=== PATIENT | female | born 1950 | race Caucasian/White ===

== ENCOUNTER 2017-05-12 06:23 | Day surgery (SDC) | payer MEDICARE, BC ==
[~2017-05-12] VITALS: Ht 165.1 cm; Wt 65.5 kg
[~2017-05-12 06:23] MED LIST: BUME2TAB PO; CALC-179 PO; COQ150CA PO; DIOV160T6 PO; FISH1000 PO; LIPI20TA PO; MYCO500 PO; PRED10 PO; PREV30CA36 PO; TIRO13CA PO; VITA200017 PO
[2017-05-12 06:40] VITALS: BP 155/98; PULSE 74; RESP 20; TEMP 98.1; O2SAT 95
[2017-05-12] MEDS ORDERED: ATOR40TA16 PO (06:40)
[2017-05-12] MEDS ORDERED: [UNRECOGNIZED DRUG - CODE] PO (06:41)
[2017-05-12] MEDS ORDERED: CALCTAB19 PO (06:42)
[2017-05-12] MEDS ORDERED: BUME1TAB PO (06:43)
[2017-05-12] MEDS ORDERED: MYCO500T PO (06:44)
[2017-05-12] MEDS ORDERED: PRED5TAB PO (06:45)
[2017-05-12] MEDS ORDERED: FISH300C PO (06:46)
[2017-05-12] MEDS ORDERED: VALS1TAB65 PO (06:48)
[2017-05-12] MEDS ORDERED: COQ-50CA2 PO (06:48)
[2017-05-12] MEDS ORDERED: [UNRECOGNIZED DRUG - CODE] PO (06:50)
[2017-05-12] MEDS ORDERED: SODIUM CHLORIDE 2 ML FLUSH PRN IV FLUSH (07:00)
[2017-05-12] MEDS ORDERED: SODIUM CHLOR 0.9% 1000 ML IV SCH (07:00)
[2017-05-12 07:19] LABS: APTT (PATIENT) 27.6 SEC (24.3-30.1); INTERNATIONAL NORMALIZED RATIO 0.9 RATIO; PROTHROMBIN TIME - PATIENT 10.2 SEC (9.8-11.6)
[2017-05-12] MEDS ORDERED: LIDOCAINE 1%/EPINEPHrine 1:100,000 SOLN 20 ML VIAL ONE (07:34)
[2017-05-12] MEDS ORDERED: MIDAZOLAM HCL 2 MG/2 ML VIAL ONE (08:27)
[2017-05-12] MEDS ORDERED: THROMBIN (TOPICAL) 5,000 UNIT VIAL ONE (08:38)
[2017-05-12] MEDS ORDERED: SODIUM CHLORIDE 2 ML FLUSH BID IV FLUSH SCH (09:00)
[2017-05-12 09:14] VITALS: BP 117/66; PULSE 69; RESP 17; TEMP 97.9; O2SAT 92
--- NOTE | 2017-05-12 09:19 | PD.RAD ---
Post CT Procedure Prog Note Pre Procedure Diagnosis: (1) Renal dysfunction Post Procedure Diagnosis: (1) Renal dysfunction Procedure Date: May 12, 2017 Supervising Radiologist: Eddi Lutz JR Anesthesia: Conscious Sedation Plan of Activity Patient to Unit: [facility] See PACS Report for procedural detail/treatment Biopsy Imaging Guidance: CT Side: Right Biopsy Procedure: Kidney Specimen: Core Biopsy Findings: Core sample of right lower pole obtained for function. Gelfoam/thrombin utilized. No hemorrhage on post CT Jr. Bolivar,Eddi Mead MD May 12, 2017 09:19
[2017-05-12] MEDS ORDERED: GELATIN 12 MM/7 MM FOAM ONE (09:25)
[2017-05-12 09:29] VITALS: BP 115/60; PULSE 63; RESP 18; O2SAT 94
[2017-05-12 09:58] LABS: AUTOMATED NEUTROPHIL # 3.5 TH/MM3 (1.8-7.7); BASOPHIL # 0.1 TH/MM3 (0-0.2); BASOPHIL % 1.4 % (0.0-2.0); EOSINOPHIL # 0.1 TH/MM3 (0-0.4); EOSINOPHIL % 1.6 % (0.0-4.0); HEMATOCRIT 23.6 % (35.0-46.0); HEMO FLAGS DIFF FINAL; LYMPH % 23.2 % (9.0-44.0); LYMPHOCYTE # 1.2 TH/MM3 (1.0-4.8); MEAN CELL VOLUME 93.8 FL (80.0-100.0); MEAN CORPUSCULAR HEMOGLOBIN 32.9 PG (27.0-34.0); MEAN CORPUSCULAR HGB CONC 35.1 % (32.0-36.0); MONO % 6.4 % (0.0-8.0); NEUT % 67.4 % (16.0-70.0); PLATELET COUNT 232 TH/MM3 (150-450); RED BLOOD COUNT 2.52 MIL/MM3 (4.00-5.30); RED CELL DISTRIBUTION WIDTH 12.7 % (11.6-17.2); WHITE BLOOD COUNT 5.2 TH/MM3 (4.0-11.0)
[2017-05-12 09:59] VITALS: BP 107/60; PULSE 66; RESP 17; O2SAT 94
[2017-05-12 10:29] VITALS: BP_SYST 108; BP_SYST 109; BP_DIAS 64; BP_DIAS 67; PULSE 67; PULSE 68; RESP 18; RESP 19; O2SAT 95; O2SAT 96
--- NOTE | 2017-05-12 11:11 | RADRPT ---
EXAM DATE/TIME: 05/12/2017 08:31 [place] COMPARISON: No previous studies available for comparison. INDICATIONS : Nephrotic syndrome. SEDATION TIME: 30 minutes BIOPSY SITE: Right MEDICATION(S): 1.) 2 mg midazolam (Versed) IV 2.) 100 mcg fentanyl (Sublimaze) IV DEVICE(S): 1.) 18 gauge BioPince needle MEDICAL HISTORY : Hypertension. Chronic kidney disease. SURGICAL HISTORY : None. ENCOUNTER: Initial ACUITY: 1 day PAIN SCORE: 0/10 LOCATION: Right A total of one core specimen(s) were obtained and sent to the laboratory for pathologic evaluation. PROCEDURE: 1. CT guided renal biopsy. 2. Conscious sedation with continuous EKG and oximetry monitoring. 3. EKG and oximetry remained stable throughout the procedure. Prior to the procedure informed consent was obtained. Any appropriate prior imaging studies were rev iewed. Using automated exposure control and adjustment of the mA and/or kV according to patient size, radiat ion dose was kept as low as reasonably achievable to obtain optimal diagnostic quality images. DICOM format image data is available electronically for review and comparison. The site was prepped in a sterile fashion. Full sterile technique was used, including cap, mask, funmi rile gloves and gown and a large sterile sheet. Hand hygiene and 2% chlorhexidine and/or betadine/al cohol prep was utilized per protocol for cutaneous antisepsis. The skin and subcutaneous tissues wer e infiltrated with local anesthetic solution. With CT guidance the lower pole of the right kidney was localized. Biopsy was performed using the pre scribed needle as above. Gelfoam and thrombin was utilized to aid in hemostasis. Adequate hemostasis was obtained with compression at the puncture site. Follow-up CT scan reveals no hemorrhage. The patient tolerated the procedure well and there were no complications. The patient was returned to the Radiology Outpatient Unit in stable condition. CONCLUSION: Uncomplicated CT guided core biopsy of the right lower pole kidney. Eddi Lutz Jr., MD on May 12, 2017 at 11:08 Board Certified Radiologist. This report was verified electronically.
[2017-05-12 11:29] VITALS: BP 106/60; PULSE 74; RESP 19; O2SAT 96
[2017-05-12 11:42] LABS: AUTOMATED NEUTROPHIL # 3.9 TH/MM3 (1.8-7.7); BASOPHIL # 0.1 TH/MM3 (0-0.2); BASOPHIL % 1.1 % (0.0-2.0); EOSINOPHIL # 0.1 TH/MM3 (0-0.4); EOSINOPHIL % 1.3 % (0.0-4.0); HEMATOCRIT 23.2 % (35.0-46.0); LYMPH % 24.5 % (9.0-44.0); LYMPHOCYTE # 1.4 TH/MM3 (1.0-4.8); MEAN CORPUSCULAR HEMOGLOBIN 33.8 PG (27.0-34.0); MONO % 5.2 % (0.0-8.0); NEUT % 67.9 % (16.0-70.0); PLATELET COUNT 240 TH/MM3 (150-450); RED BLOOD COUNT 2.49 MIL/MM3 (4.00-5.30); RED CELL DISTRIBUTION WIDTH 12.9 % (11.6-17.2); WHITE BLOOD COUNT 5.7 TH/MM3 (4.0-11.0)
[2017-05-12 11:52] LABS: HEMO FLAGS AUTO DIFF; MEAN CORPUSCULAR HGB CONC 36.3 % (32.0-36.0)
[2017-05-12 13:01] LABS: SCAN/DIFF AUTO DIFF CONFIRMED
== END 2017-05-12 13:48 | disposition home or self-care (01) ==
LOC: HRAD 06:23 → HRIP 06:25 → HRAD 13:48
PROVIDERS: ATTEND Internal Medicine Nephrology
DX: I12.9 Hypertensive chronic kidney disease with stage 1 through stage 4 chronic kidney disease, or unspecified chronic kidney disease (principal); N18.2 Chronic kidney disease, stage 2 (mild); D63.1 Anemia in chronic kidney disease; E03.9 Hypothyroidism, unspecified; K21.9 Gastro-esophageal reflux disease without esophagitis; E78.4 Other hyperlipidemia
CPT/HCPCS: 50200; 77012; 85025; 85610; 85730; 88305; 88313; 88346; 88348; 88350; J2250; J3010; J7030

== ENCOUNTER 2017-11-13 13:30 | Emergency (ER) | payer MEDICARE ==
[~2017-11-13 13:30] MED LIST changes: +ATOR40TA16 PO; +BUME1TAB PO; -BUME2TAB PO; -CALC-179 PO; +CALCTAB19 PO; +COQ-50CA2 PO; -COQ150CA PO; -DIOV160T6 PO; -FISH1000 PO; +FISH300C PO; -LIPI20TA PO; -MYCO500 PO; +MYCO500T PO; -PRED10 PO; +PRED5TAB PO; -PREV30CA36 PO; -TIRO13CA PO; +VALS1TAB65 PO; -VITA200017 PO; +[UNRECOGNIZED DRUG - CODE] PO; +[UNRECOGNIZED DRUG - CODE] PO
[2017-11-13 14:09] VITALS: BP 171/79; PULSE 112; RESP 20; TEMP 98; O2SAT 98
[2017-11-13 14:57] LABS: AUTOMATED NEUTROPHIL # 12.3 TH/MM3 (1.8-7.7); BASOPHIL # 0.1 TH/MM3 (0-0.2); BASOPHIL % 0.7 % (0.0-2.0); EOSINOPHIL % 0.1 % (0.0-4.0); HEMATOCRIT 23.8 % (35.0-46.0); LYMPHOCYTE # 1.1 TH/MM3 (1.0-4.8); MEAN CELL VOLUME 92.4 FL (80.0-100.0); MEAN CORPUSCULAR HEMOGLOBIN 31.2 PG (27.0-34.0); MEAN CORPUSCULAR HGB CONC 33.8 % (32.0-36.0); MEAN PLATELET VOLUME 7.8 FL (7.0-11.0); MONO % 3.7 % (0.0-8.0); MONOCYTE # 0.5 TH/MM3 (0-0.9); NEUT % 87.5 % (16.0-70.0); PLATELET COUNT 355 TH/MM3 (150-450); RED BLOOD COUNT 2.58 MIL/MM3 (4.00-5.30); RED CELL DISTRIBUTION WIDTH 12.4 % (11.6-17.2); WHITE BLOOD COUNT 14.1 TH/MM3 (4.0-11.0)
[2017-11-13 15:03] LABS: BICARBONATE 23.3 MEQ/L (21.0-32.0); CALCIUM 7.9 MG/DL (8.5-10.1); CREATININE 2.06 MG/DL (0.50-1.00)
[2017-11-13 15:15] LABS: PROTHROMBIN TIME - PATIENT 10.4 SEC (9.8-11.6)
[2017-11-13] MEDS ORDERED: METR-1 PO (16:16)
[2017-11-13] MEDS ORDERED: ZOFR4TAB3 SL (16:16)
[2017-11-13] MEDS ORDERED: LOMO2.5T PO (16:16)
--- NOTE | 2017-11-13 16:29 | PD ---
HPI Chief Complaint: Abnormal Results Time Seen by Provider: 15:45 Travel History International Travel<30 days: No Contact w/Intl Traveler<30days: No Traveled to known affect area: No History of Present Illness HPI 67-year-old female that presents to the ED for evaluation of abnormal hemoglobin. Patient has chronic kidney disease stage IV. 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 She had blood work done yesterday for routine blood work and she was called today stating that her hemoglobin was 6.9. She was told to come here for possible transfusion. She denies take any blood thinners. No bleeding from any kind. She does state that she has been having some nausea and vomiting as well as diarrhea for about a week but is improving on the nausea and vomiting but she continues to have a diarrhea. Per patient her diarrhea is liquidy. No blood in it. She denies ever having to need a transfusion. She has denies any weakness, shortness of breath. No chest pain. No history of heart disease. No other medical issues. No other medical complaints. No pain at this time. No headache or lightheadedness. PFSH Past Medical History Blood Disorders: No Heart Rhythm Problems: No Cancer: No Cardiovascular Problems: Yes High Cholesterol: Yes Chest Pain: No Congestive Heart Failure: No Diabetes: No Diminished Hearing: No Endocrine: Yes Gastrointestinal Disorders: Yes ( IBS) GERD: Yes Genitourinary: Yes Hepatitis: No Hiatal Hernia: No Hypertension: Yes Immune Disorder: No Musculoskeletal: Yes (MUSCLE WEAKNESS) Neurologic: No Psychiatric: No Reproductive: No Respiratory: No Thyroid Disease: Yes (HYPOTHYROID) Menopausal: Yes : 2 Para: 2 Past Surgical History Abdominal Surgery: No Cardiac Surgery: No Section: Yes (X2) Endocrine Surgery: No Eye Surgery: Yes (GROWTH REMOVED) Genitourinary Surgery: No Thoracic Surgery: No Tonsillectomy: Yes Other Surgery: Yes (THUMB X 3,C-SECTIONX2,TONSILECTOMY) Social History Alcohol Use: No Tobacco Use: No Substance Use: No Allergies-Medications (Allergen,Severity, Reaction): Coded Allergies: metronidazole (Unverified Allergy, Severe, N/V, 02/12/17) Uncoded Allergies: flagyl (Allergy, Intermediate, n/v, 10/16/11) Reported Meds & Prescriptions Reported Meds & Active Scripts Active Augmentin (Amoxicillin-Clavulanate) 500-125 mg Tab 250 Mg PO BID 5 Days Lomotil (Diphenoxylate-Atropine) 2.5-0.025 Mg Tab 1 Tab PO Q6H PRN Zofran Odt (Ondansetron Odt) 4 Mg Tab 4 Mg SL Q6HR PRN Reported Vitamin E Oil-Vitamin D (Vit D3/Vit E AC/Safflower Oil) 52 Ml Oil 2,000 Mcg PO DAILY Valsartan 160 Mg Tab 160 Mg PO BID Coq-10 (Coenzyme Q10 (Ubidecarenone)) 50 Mg Cap 100 Mg PO DAILY Fish Oil Concentrate 300 mg ([place]-3 Fatty Acids) 300 Mg-1,000 Mg Cap 400 Mg PO DAILY Prednisone 5 Mg Tab 5 Mg PO DAILY Mycophenolate (Mycophenolate Mofetil) 500 Mg Tab 500 Mg PO BID Bumetanide 1 Mg Tab 1 Mg PO BID Calcium 600+D 200 (Calcium Carbonate-Vitamin D) 600-200 Mg-Unit Tab 1 Tab PO BID Tirosint (Levothyroxine Sodium) 88 Mcg Cap 75 Mcg PO DAILY Atorvastatin (Atorvastatin Calcium) 40 Mg Tab 40 Mg PO HS Physical Exam Narrative GENERAL: SKIN: Warm and dry. HEAD: Atraumatic. Normocephalic. EYES: Pupils equal and round. No scleral icterus. No injection or drainage. ENT: No nasal bleeding or discharge. Mucous membranes pink and moist. Tongue is midline. No uvula deviation. NECK: Trachea midline. No JVD. CARDIOVASCULAR: Regular rate and rhythm. No murmurs, S3, S4. RESPIRATORY: No accessory muscle use. Clear to auscultation. Breath sounds equal bilaterally. GASTROINTESTINAL: Abdomen soft, non-tender, nondistended. Hepatic and splenic margins not palpable. MUSCULOSKELETAL: Extremities without clubbing, cyanosis, or edema. No obvious deformities. Full range of motion of the upper and lower extremities bilaterally. 2+ pulses bilaterally. NEUROLOGICAL: Awake and alert. No obvious cranial nerve deficits. Motor grossly within normal limits. Five out of 5 muscle strength in the arms and legs. Normal speech. PSYCHIATRIC: Appropriate mood and affect; insight and judgment normal. Data Data Last Documented VS Vital Signs Date Time Temp Pulse Resp B/P (MAP) Pulse Ox O2 Delivery O2 Flow Rate FiO2 11/13/17 14:09 98.0 112 20 171/79 (109) 98 Orders Orders Complete Blood Count With Diff (11/13/17 14:10) Basic Metabolic Panel (Bmp) (11/13/17 14:10) Type And Screen (11/13/17 14:10) Act Partial Throm Time (Ptt) (11/13/17 14:10) Prothrombin Time / Inr (Pt) (11/13/17 14:10) Ed Discharge Order (11/13/17 16:25) Labs Laboratory Tests Test 11/13/17 14:19 White Blood Count 14.1 TH/MM3 Red Blood Count 2.58 MIL/MM3 Hemoglobin 8.0 GM/DL Hematocrit 23.8 % Mean Corpuscular Volume 92.4 FL Mean Corpuscular Hemoglobin 31.2 PG Mean Corpuscular Hemoglobin Concent 33.8 % Red Cell Distribution Width 12.4 % Platelet Count 355 TH/MM3 Mean Platelet Volume 7.8 FL Neutrophils (%) (Auto) 87.5 % Lymphocytes (%) (Auto) 8.0 % Monocytes (%) (Auto) 3.7 % Eosinophils (%) (Auto) 0.1 % Basophils (%) (Auto) 0.7 % Neutrophils # (Auto) 12.3 TH/MM3 Lymphocytes # (Auto) 1.1 TH/MM3 Monocytes # (Auto) 0.5 TH/MM3 Eosinophils # (Auto) 0.0 TH/MM3 Basophils # (Auto) 0.1 TH/MM3 CBC Comment DIFF FINAL Differential Comment Prothrombin Time 10.4 SEC Prothromb Time International Ratio 1.0 RATIO Activated Partial Thromboplast Time 27.4 SEC Blood Urea Nitrogen 86 MG/DL Creatinine 2.06 MG/DL Random Glucose 113 MG/DL Calcium Level 7.9 MG/DL Sodium Level 136 MEQ/L Potassium Level 4.0 MEQ/L Chloride Level 104 MEQ/L Carbon Dioxide Level 23.3 MEQ/L Anion Gap 9 MEQ/L Estimat Glomerular Filtration Rate 24 ML/MIN MDM Medical Decision Making Medical Screen Exam Complete: Yes Emergency Medical Condition: Yes Medical Record Reviewed: Yes Interpretation(s) CBC & BMP Diagram 11/13/17 14:19 Calcium Level 7.9 L Differential Diagnosis Anemia versus chronic anemia versus normal exam versus GI bleed versus diarrhea versus diverticulitis versus colitis Narrative Course 67-year-old female that presents to the ED for evaluation of abnormal blood work. Patient was properly examined and was found to have signs and symptoms consistent appears to be possible anemia. Blood work here showed a hemoglobin of 8.0. This appears to be the baseline for the patient. Likely this is an abnormal labs from yesterday. Patient is completely asymptomatic. She does have some nausea and vomiting diarrhea and states that is been going on for about a week now but the nausea and vomiting has improved but there is nothing that has not improved. She has no abdominal pain. Her exam is benign. Possibly colitis versus diverticulitis. I will treat patient with Augmentin 250 mg as patient is allergic to Flagyl and her creatinine clearance is 13. Per up-to-date patient can only have 250 mg every 12 hours. Patient was told to follow-up closely with PCP. I spoke with Dr. Jordan over the phone who agrees the patient does not need to be transfused and can follow-up outpatient. See ED if worsening symptoms. Follow-up with PCP. Of note per medical records patient has had hemoglobin in the eights that appears to be chronic likely from her CKD. [facility] Point of Care Internal Pos. & Neg. Controls: Passed Fecal Specimen Occult Blood: Negative Diagnosis Primary Impression: Anemia Qualified Codes: N18.4 - Chronic kidney disease, stage 4 (severe); D63.1 - Anemia in chronic kidney disease Additional Impression: Diarrhea Qualified Codes: R19.7 - Diarrhea, unspecified Patient Instructions: General Instructions Additional Instructions: Take medications as prescribed. Follow-up with your company tanker truck driver. See ED if worsening symptoms. Med/Other Pt SpecificInfo: Prescription(s) given Scripts Amoxicillin-Clavulanate (Augmentin) 500-125 mg Tab 250 MG PO BID for Infection for 5 Days, TAB 0 Refills Prov: Eileen Huddleston MD 11/13/17 Diphenoxylate-Atropine (Lomotil) 2.5-0.025 Mg Tab 1 TAB PO Q6H Y for DIARRHEA, #14 TAB 0 Refills Prov: Eileen Huddleston MD 11/13/17 Ondansetron Odt (Zofran Odt) 4 Mg Tab 4 MG SL Q6HR Y for Nausea/Vomiting, #20 TAB 0 Refills Prov: Eileen Huddleston MD 11/13/17 Disposition: 01 DISCHARGE HOME Condition: Stable Warner García November 13, 2017 16:29
[2017-11-13] MEDS ORDERED: AUGM500T7 PO (16:33)
[2017-11-13] MEDS ORDERED: PROPOFOL 500 MG/50 ML INJ 0 ML ONE (19:08)
== END 2017-11-13 17:04 | disposition home or self-care (01) ==
LOC: NEPC 13:30
DX: I12.9 Hypertensive chronic kidney disease with stage 1 through stage 4 chronic kidney disease, or unspecified chronic kidney disease (principal); N18.4 Chronic kidney disease, stage 4 (severe); D63.1 Anemia in chronic kidney disease; R19.7 Diarrhea, unspecified
CPT/HCPCS: 80048; 85025; 85610; 85730; 99283